=== PATIENT | male | born 1980 | race African-American/Black ===

== ENCOUNTER 2021-05-20 17:14 | Emergency (ER) | payer OTHER, SELFPAY ==
[2021-05-20 17:27] VITALS: BP 146/87; PULSE 63; RESP 16; TEMP 36.4; O2SAT 99
--- NOTE | 2021-05-20 17:46 | ECG_ITS ---
Measurements Intervals [place] Rate: 55 P: 24 WV: 182 QRS: 19 QRSD: 103 T: 19 QT: 407 QTc: 391 Interpretive Statements SINUS BRADYCARDIA ST ELEVATION IN DIFFUSE LEADS- PROBABLY EARLY REPOLARIZATION BORDERLINE ECG Electronically Signed On 05-20-2021 20:08:19 CDT by Jayden Du D.O.
--- NOTE | 2021-05-20 17:47 | ED.CHESTPAIN ---
HPI - Chest Pain General Chief Complaint: Chest Pain Stated Complaint: High Blood Pressure,Chest Pain History of Present Illness HPI narrative: This is a 40-year-old male that was seen at the dental clinic approximately about 1 week ago and they informed him that his blood pressure was elevated so patient since then has been stressing about his blood pressure states that he has been checking it off the and when he noticed that that high he has been drinking or taking some extra magnesium to lower his blood pressure patient's been very concerned and states that he is not able to get a primary care provider so he comes in today stating that he has some off and on chest pains which she currently does not have and states that he notices it most when he has eaten fast food or a lot of food with salt Related Data Home Medications Medication Instructions Recorded Confirmed No Home Medications 05/20/21 05/20/21 Allergies Allergy/AdvReac Type Severity Reaction Status Date / Time No Known Allergies Allergy Verified 05/20/21 18:07 Review of Systems Review of Systems: CONSTITUTIONAL: Denies fever, chills, or sweats. EYES: Denies visual changes, redness, or discharge. ENT: Denies rhinorrhea, congestion, sore throat, or otalgia. CARDIOVASCULAR: Reports chest pain but does not have right now, palpitations, or edema. RESPIRATORY: Denies cough or dyspnea. GASTROINTESTINAL: Denies abdominal pain, nausea, vomiting, or diarrhea. GENITOURINARY: Denies dysuria or hematuria. SKIN:[Denies rash or itching. MUSCULOSKELETAL:Denies back pain, joint pain, or myalgia. NEUROLOGIC: Denies headache, numbness, or weakness. PSYCHIATRIC:Denies anxiety or depression PMFSH Comments At time as signature, I have reviewed and agree with nursing past medical, social, surgical and family history. Please see nursing chart for further information. There is no relevant family history pertinent to the presenting complaint. Exam Narrative: GENERAL:Well-appearing, well-nourished, and in no acute distress. HEAD:Normocephalic, atraumatic. EYES: PERRLA and EOMI. ENT: Nares clear, no rhinorrhea or epistaxis. Mucous membranes moist. NECK: Supple. CHEST: Clear to auscultation. No respiratory distress. HEART: Regular rate and rhythm. ABDOMEN: Soft, nontender, nondistended, normal active bowel sounds. EXTREMITIES: Normal range of motion. No edema. SKIN: Warm, dry, no rash. NEURO: No focal deficits. Alert and oriented x3. Patient currently does not have any chest pains patient ultimately is wanting a primary care provider appointment Course [employer] Physician Supervision This is the patient and get an primary care provider appointment he has one scheduled for Dr. Kristan Domínguez back [address] [facility] in [facility] on June 03 at 1130 Vital Signs Vital signs: Vital Signs Temperature 97.5 F L 05/20/21 17:27 Pulse Rate 63 05/20/21 17:27 Respiratory Rate 16 05/20/21 17:27 Blood Pressure 146/87 H 05/20/21 17:27 Pulse Oximetry 99 05/20/21 17:27 Temperature 97.5 F L 05/20/21 17:27 Pulse Rate 63 05/20/21 17:27 Respiratory Rate 16 05/20/21 17:27 Blood Pressure 146/87 H 05/20/21 17:27 Pulse Oximetry 99 05/20/21 17:27 MDM - Chest Pain Differential Diagnosis Differential diagnosis: Likely atypical chest pain and other (Hypertension, anxiety, chest pains) Discharge Plan Discharge Clinical Impression: Hypertension Patient Disposition: Home, Self-Care Condition: Stable Instructions: Antibiotic Form, Hypertension (ED) Additional Instructions: Had a conversation with patient about blood pressure assisted patient in scheduling of her appointment with a primary care provider Dr. Rushing) [address] [place] [address] June 03 at 1130 Your blood pressure was elevated in the clinic today, I feel that this is due to your acute illness rather than essential hypertension. please follow-up with your regular doctor for further evaluati
== END 2021-05-20 18:35 | disposition home or self-care (01) ==
PROVIDERS: Emergency Provider Nurse Practitioner Family
DX: I10 Essential (primary) hypertension (principal)
CPT/HCPCS: 93005; 99213; G0463